=== PATIENT | female | born 1985 | race Caucasian/White ===

== ENCOUNTER 2017-06-04 00:35 | Inpatient (IN) | payer BC, OTHER ==
[~2017-06-04] VITALS: Ht 170.2 cm; Wt 104.3 kg
--- NOTE | 2017-06-04 00:45 | NUR ---
PT BB SELF FROM HOME WITH C/O ABD PAIN 11/04 RADIATING TO THE R LOWER AND R UPPER BACK AREA. PT STATES "MY URINE HAS BEEN BROWN IN COLOR AND I FEEL CONSTIPATION LIKE PAIN WHEN I URINATE". PT STATES LBM TODAY. PT -N/V/D. PT IS AAOX4. RESP EVEN AND UNLABORED. SKIN WNL. VSS. NO S/S OF ACUTE DISTRESS NOTED. PT SAFETY AND COMFORT MEASURES IN PLACE. PT PLACED ON MONITOR AND POX. AWAITING MD FOR EVAL
[2017-06-04] MEDS ORDERED: IV NS 0.9% 1,000 ML BAG IV ONE (01:00)
[2017-06-04] MEDS ORDERED: ONDANSETRON HCL/PF 4 MG/2 ML VIAL IVP ONE (01:00)
[2017-06-04] MEDS ORDERED: KETOROLAC TROMETHAMINE INJ 30 MG/ML VIAL IV ONE (01:00)
[2017-06-04] MEDS ORDERED: KETOROLAC TROMETHAMINE INJ 30 MG/ML VIAL ONE (01:19)
[2017-06-04] MEDS ORDERED: ONDANSETRON HCL/PF 4 MG/2 ML VIAL ONE (01:19)
[2017-06-04 01:33] LABS: BASOPHILS % (AUTO) 0.6 % (0.0-2.0); EOSINOPHILS % (AUTO) 3.2 % (0.0-6.0); HEMATOCRIT 35 % (33-45); HEMOGLOBIN 11.9 g/dL (11.5-14.8); LYMPHOCYTES # (AUTO) 2.1 /CMM (0.8-4.8); LYMPHOCYTES % (AUTO) 28.9 % (20.0-44.0); MEAN CORPUSCULAR HGB CONC 34 g/dl (31.0-36.0); MEAN CORPUSCULAR VOLUME 79 fL (82-100); MONOCYTES # (AUTO) 0.3 /CMM (0.1-1.30); MONOCYTES % (AUTO) 4.8 % (2.0-12.0); NEUTROPHILS # (AUTO) 4.5 /CMM (1.8-8.9); NEUTROPHILS % (AUTO) 62.5 % (43.0-81.0); PLATELET COUNT (AUTO) 248 /CMM (150-450); RDW COEFFICIENT OF VARIATION 14.5 (11.5-15.0); RED BLOOD CELL COUNT(AUTO) 4.47 MIL/uL (4.0-5.2); WHITE BLOOD COUNT (AUTO) 7.2 K/uL (4.3-11.0)
[2017-06-04 01:45] LABS: CALCIUM, SERUM 8.6 mg/dL (8.5-10.1); CREATININE 0.7 mg/dL (0.6-1.3); POTASSIUM 3.5 mmol/L (3.5-5.1)
[2017-06-04 01:46] LABS: INR 1.01 (0.87-1.13)
[2017-06-04 01:51] LABS: ALBUMIN 3.5 g/dL (3.4-5.0); BILIRUBIN,DIRECT 2.1 mg/dL (0.0-0.2); BILIRUBIN,TOTAL 3.3 mg/dL (0.2-1.0); TOTAL PROTEIN, SERUM 7.4 g/dL (6.4-8.2)
--- NOTE | 2017-06-04 02:05 | NUR ---
REPORT GIVEN TO [facility] ED FOR DONALD.
--- NOTE | 2017-06-04 02:12 | NUR ---
nicole correa at bedside to re-eval pt.
--- NOTE | 2017-06-04 03:05 | NUR ---
ERIC LOZOYA AT BEDSIDE.
--- NOTE | 2017-06-04 03:29 | NUR ---
GALLBLADDER ERIC DONE.
--- NOTE | 2017-06-04 03:55 | NUR ---
AGNIESZKA DEVI TALKING TO SANCHO REGARDING PT ADMISSION.
--- NOTE | 2017-06-04 03:58 | NUR ---
PT AMBULATORY TO THE BATHROOM WITH STEADY GAIT NOTED.
[2017-06-04] MEDS ORDERED: Z GUARD REMEDY 2 OZ OINT TP PRN (04:00)
[2017-06-04] MEDS ORDERED: INSULIN REGULAR, HUMAN 100 UNIT/ML 3 ML VIAL SQ PRN (04:00)
[2017-06-04] MEDS ORDERED: KETOROLAC TROMETHAMINE INJ 30 MG/ML VIAL IV PRN (04:00)
[2017-06-04] MEDS ORDERED: ACETAMINOPHEN 325 MG TABLET PO PRN (04:00)
[2017-06-04] MEDS ORDERED: ONDANSETRON HCL/PF 4 MG/2 ML VIAL IVP PRN (04:00)
[2017-06-04] MEDS ORDERED: MAGNESIUM HYDROXIDE 30 ML UDC PO PRN (04:00)
[2017-06-04] MEDS ORDERED: MAG HYDROX/AL HYDROX/SIMETH 30 ML UDC PO PRN (04:00)
[2017-06-04] MEDS ORDERED: DEXTROSE 50%-WATER 50 ML DISP.SYRIN IV PRN (04:00)
--- NOTE | 2017-06-04 04:05 | NUR ---
REPORT CALLED TO M/S YIN GARCIA.
--- NOTE | 2017-06-04 04:30 | NUR ---
MS/RN OPENING NOTES PT ARRIVED TO UNIT FROM ER VIA WHEELCHAIR, ACCOMPANIED BY MOTHER. A/OX4. ON ROOM AIR, BREATHING EVEN AND UNLABORED. DENIES SOB OR PAIN AT THIS TIME. IV TO RAC PATENT AND INTACT. ORIENTED PT TO ROOM AND CALL LIGHT. BED IN LOW/LOCKED POSITION WITH CALL LIGHT IN REACH. SIDE RAILS UPX2. BELONGINGS LIST COMPLETED. PT TO BE KEPT NPO AND HAS PHYSICIAN CONSULT WITH DR. LUIS ALBERTO SAM. PT MADE AWARE AND VERBALIZES UNDERSTANDING. WILL CONTINUE TO MONITOR
[2017-06-04] MEDS: IV NS 0.9% 1,000 ML IV SCH ×2 (04:34→17:20)
[2017-06-04 05:02] VITALS: BP 116/69
[2017-06-04] MEDS: BLOOD SUGAR DIAGNOSTIC 1 EACH STRIP IN SCH ×3 (07:06→17:30)
--- NOTE | 2017-06-04 07:14 | NUR ---
MS/RN NOTES BLOOD HQGCY=[id number], NO INSULIN COVERAGE. PT IS CURRENTLY NPO
--- NOTE | 2017-06-04 07:15 | NUR ---
ms rn initial notes Received patient in bed, awake, head of bed elevated, no SOB or distress noted, on room air and tolerated well, NPO at this time. IV intact and patent with IVF infusing well. Alert and oriented x 4, verbally responsive and able to make needs known. No complaint of pain or discomfort at this time. Call light with in patient reach, will continue to monitor accordingly.
--- NOTE | 2017-06-04 07:15 | NUR ---
MS/RN CLOSING NOTES PT AWAKE, MOTHER AT BEDSIDE. ON ROOM AIR, BREATHING EVEN AND UNLABORED. NO SOB OR PAIN NOTED. IV TO RAC PATENT AND INTACT RUNNING IVF ORDERED. PT KEPT NPO ORDERED. NO SIGNIFICANT CHANGES OVERNIGHT. BED IN LOW/LOCKED POSITION WITH CALL LIGHT IN REACH, SIDE RAILS UPX2. ENDORSED TO DAY SHIFT RN DONALD.
[2017-06-04] MEDS ORDERED: PANTOPRAZOLE 40 MG VIAL IV SCH (07:30)
[2017-06-04 08:00] VITALS: BP_SYST 114; BP_SYST 127; BP_DIAS 65; BP_DIAS 70
--- NOTE | 2017-06-04 11:58 | NUR ---
ms rn notes Blood sugar checked 158 no coverage given due to patient is NPO. Will continue to monitor
[2017-06-04 15:50] VITALS: BP 125/80
--- NOTE | 2017-06-04 18:11 | NUR ---
ms rn notes Blood sugar checked 201 patient refused coverage. MD made aware and wants to go home today. Will continue to monitor.
[2017-06-04] MEDS ORDERED: ONDA4TAB5 PO (18:32)
[2017-06-04] MEDS ORDERED: HYDR-552 PO (18:32)
--- NOTE | 2017-06-04 19:00 | NUR ---
MS SEAT PACK INSPECTOR NOTES Discharge instructions given to patient and able to understand instructions. Signed discharge paper and belonging list. Prescription sent to preferred pharmacy. IV discontinued and pressured applied to prevent bleeding. Skin is intact. Flu vaccine refused, explained the risk and benefits x 3 and still refused. Pneumonia vaccine not given due to age <65 years old. Informed patient to follow up with primary health care physician in 1-2 weeks after discharge. Patient left in stable condition accompanied by mother, no complaint of pain or discomfort, nor chest pain. Vital signs checked and recorded. MD and charge nurse aware.
== END 2017-06-04 19:00 | disposition home or self-care (01) | DRG 446 ==
LOC: ER 00:37 → MEDSG2 04:04
PROVIDERS: ADMIT Registered Nurse; ATTEND Registered Nurse
DX: K80.20 Calculus of gallbladder without cholecystitis without obstruction (principal); E66.01 Morbid (severe) obesity due to excess calories; K76.0 Fatty (change of) liver, not elsewhere classified; R16.0 Hepatomegaly, not elsewhere classified; E11.9 Type 2 diabetes mellitus without complications; F12.90 Cannabis use, unspecified, uncomplicated; F17.210 Nicotine dependence, cigarettes, uncomplicated; R74.0 Nonspecific elevation of levels of transaminase and lactic acid dehydrogenase [LDH]; Z68.36 Body mass index [BMI] 36.0-36.9, adult; E80.6 Other disorders of bilirubin metabolism; Z71.6 Tobacco abuse counseling
CPT/HCPCS: 36415; 74181-TC; 76705-TC; 80048-TC; 80076-TC; 82962-TC; 83690-TC; 84703-TC; 85025-TC; 85730-TC; 86850-TC; 87081-TC; A4606; C9113; J1815; J1885; J2405; J7030; Z7610